=== PATIENT | female | born 1975 | race Caucasian/White ===

== ENCOUNTER 2020-07-01 18:48 | Inpatient (IN) | payer SELFPAY ==
[~2020-07-01] VITALS: Ht 180.3 cm; Wt 102.3 kg
[~2020-07-01 18:48] MED LIST: BUTA-177 PO; BUTA1CAP59 PO; MECL-101 PO; NAPR-856 PO
[2020-07-01] MEDS ORDERED: PROPOFOL 100 ML IV PRN ×2 (19:00→21:30)
--- NOTE | 2020-07-01 19:04 | NUR ---
BIB [facility] FROM HOME AFTER HAVING N/V FOR THE PAST 2 DAYS, PT WAS SITTING ON THE COUCH WHEN SHE START TO SNORE AND FAMILY PULLED HER TO THE FLOOR AND STARTED CPR AT 1745. PATIENT WAS IN IN V-FIB AND SHOCKED HER TWO TIMES WITH 200J WAS IN PEA, GAVE 2 ROUNDS OF EPI. GOT PULSE BACK FROM HR 120-140. BS 130. INTUBATED IN THE FIELD WITH 6.5 TUBE AT 24 AT THE TEETH. INTUBATED PT SPO2 89%. IO IN LEFT TIBIA. PT WAS GIVEN 1 L NS. 16 F OG PUT IN. 16 F VIVAR CATH PUT IS , RIGHT AND LEFT WRIST SOFT RESTRAINTS PUT ON. XRAY IN RROM
[2020-07-01] MEDS ORDERED: PIPERACILLIN/TAZO/PMX 3.375GM 50 ML ONE (19:11)
[2020-07-01] MEDS ORDERED: PIPERACILLIN/TAZO/PMX 3.375GM 50 ML IVPB ONE (19:30)
[2020-07-01] MEDS ORDERED: MECL-101 PO (19:36)
[2020-07-01] MEDS ORDERED: NORT10CA PO (19:36)
[2020-07-01] MEDS ORDERED: ONDA4TAB7 PO (19:36)
[2020-07-01] MEDS ORDERED: ACET125T2 PO (19:36)
[2020-07-01] MEDS ORDERED: OXYB5TAB10 PO (19:36)
[2020-07-01] MEDS ORDERED: BUTA1CAP5 PO (19:36)
[2020-07-01] MEDS ORDERED: HYDR-3237 PO (19:36)
[2020-07-01] MEDS ORDERED: NAPR-856 PO (19:36)
[2020-07-01] MEDS ORDERED: NALT1TAB PO (19:36)
[2020-07-01] MEDS ORDERED: TAMS-11 PO (19:36)
[2020-07-01] MEDS ORDERED: IBUP-1222 PO (19:36)
[2020-07-01] MEDS ORDERED: PRAV40TA2 PO (19:36)
[2020-07-01] MEDS ORDERED: SUMA100T4 PO (19:36)
--- NOTE | 2020-07-01 19:48 | NUR ---
REPORT FROM BRIDGER RN. TO CT.
[2020-07-01 19:59] LABS: MD YES; MEAN CORPUSCULAR HEMOGLOBIN 28.2 pg (27.0-34.8); MEAN CORPUSCULAR HGB CONC 33.6 g/dL (32.4-35.8); MEAN PLATELET VOLUME 9.2 fL (7.4-10.4); PLATELET COUNT 171 x10^3/uL (130-400); RED BLOOD COUNT 4.99 x10^6/uL (3.82-5.3); RED CELL DISTRIBUTION WIDTH 13.2 % (9.6-15.2)
[2020-07-01 20:02] LABS: ALBUMIN 2.9 g/dL (3.4-5.0); ANION GAP 13 mmol/L (5-15); CALCIUM 7.6 mg/dL (8.5-10.1); CHLORIDE 110 mmol/L (98-107)
[2020-07-01 20:03] LABS: MICROSCOPIC INDICATED
--- NOTE | 2020-07-01 20:10 | NUR ---
BACK FROM CT NICARDIPINE PER OCT.
--- NOTE | 2020-07-01 20:13 | NUR ---
MD AWARE OF GAS, UOP 155 CLOUDY YELLOW URINE.
[2020-07-01 20:14] LABS: ALANINE AMINOTRANSFERASE 37 U/L (12-78); ALKALINE PHOSPHATASE 108 U/L (45-117); BILIRUBIN,TOTAL 0.7 mg/dL (0.2-1.0); CREATININE 1.72 mg/dL (0.55-1.02); TOTAL PROTEIN 6.4 g/dL (6.4-8.2)
[2020-07-01 20:19] LABS: TROPONIN I 0.169 ng/mL (0.000-0.045)
[2020-07-01] MEDS ORDERED: FAMOTIDINE 20 MG/2 ML ONE (20:30)
[2020-07-01] MEDS ORDERED: ARTIFICIAL TEARS OINT 3.5 GM EACHEYE PRN (20:30)
[2020-07-01] MEDS ORDERED: SODIUM PHOSPHATE 20 MMOL in SODIUM CHLORIDE 0.9% 250 ML IVPB ONE (20:30)
[2020-07-01] MEDS ORDERED: MAGNESIUM SULFATE/D5W 100 ML ONE (20:30)
[2020-07-01] MEDS ORDERED: MAGNESIUM SULFATE 1 GM in SODIUM CHLORIDE 0.9% 100 ML IVPB ONE (20:30)
[2020-07-01] MEDS ORDERED: POTASSIUM CHLORIDE 40 MEQ in SODIUM CHLORIDE 0.9% 500 ML IV ONE (20:30)
[2020-07-01] MEDS ORDERED: FAMOTIDINE 20 MG/2 ML IVPush ONE (20:30)
[2020-07-01] MEDS ORDERED: VECURONIUM 10 MG IVPush PRN (20:30)
--- NOTE | 2020-07-01 20:35 | NUR ---
EMILY IN ROOM FOR EVAL, SPEAKING W FAMILY. ST 140S. NO GAG, PUPILS FIXED, 1 MM, DOES NOT WITHDRAW, GCS 3.
[2020-07-01 20:40] LABS: BAND#(MANUAL) 4.17 x10^3/uL; BANDS%(MANUAL) 17 % (0-7); LYMPH#(MANUAL) 1.47 x10^3/uL (1-3.4); LYMPHS% (MANUAL) 6 % (22-44); MONOS#(MANUAL) 0.49 x10^3/uL (0.3-2.7); MONOS% (MANUAL) 2 % (2-9); SEG#(MANUAL) 18.38 x10^3/uL (1.8-6.8); SEGS% (MANUAL) 75 % (42-75)
[2020-07-01 20:42] LABS: <PLATELET ESTIMATE> ADEQUATE; <RBC MORPHOLOGY> NORMAL
[2020-07-01 20:43] LABS: <PLT MORPHOLOGY> NORMAL PLT MORPH
[2020-07-01] MEDS ORDERED: METOPROLOL 1 MG/ML, 5ML ONE (20:44)
--- NOTE | 2020-07-01 20:51 | NUR ---
SMITH IN ROOM TO DISCUS SPT CONDITION W FAM.
[2020-07-01] MEDS ORDERED: METOPROLOL 1 MG/ML, 5ML IVPush SCH (21:00)
--- NOTE | 2020-07-01 21:16 | NUR ---
AWAITING PTS MOTHER BEFORE MAKING DECISION OF DONOR VS WITHDRAWING CARE.
[2020-07-01] MEDS: HEPARIN 5,000 UNITS/ML, 1ML SQ SCH (21:30)
[2020-07-01] MEDS: FAMOTIDINE 20 MG/2 ML IV SCH (21:30)
[2020-07-01] MEDS ORDERED: FENTANYL PF 100 MCG/2ML IVPush PRN (21:30)
[2020-07-01] MEDS ORDERED: PHARMACY MAY ADJ FOR RENAL FX MC SCH (21:30)
[2020-07-01] MEDS ORDERED: NS + 40MEQ KCL 1,000 ML IV SCH ×2 (21:30→23:30)
[2020-07-01] MEDS ORDERED: LIDOCAINE-MPF 1%, 2ML ENDO PRN (21:30)
--- NOTE | 2020-07-01 21:30 | NUR ---
[employer]OR [employer] CALLED: VICKY [phone] PLAN: DNW WILL COME TO SEE PT IN APPOX 1 HR, STILL AWAITING MOTHER, FAM AT BEDSIDE,
--- NOTE | 2020-07-01 22:06 | NUR ---
DR COCHRAN [phone]
--- NOTE | 2020-07-01 22:07 | NUR ---
RENETTA RIOS UPDATED, SPOKE SAMMIE Salguero MD IN ROOM TO SPEAK Jose M AYALA.
[2020-07-01] MEDS ORDERED: HEPARIN 5,000 UNITS/ML, 1ML ONE (22:10)
[2020-07-01] MEDS ORDERED: NS + 40MEQ KCL 1,000 ML IV ONE (22:11)
--- NOTE | 2020-07-01 22:16 | NUR ---
RT AT [facility].
[2020-07-01] MEDS ORDERED: DILTIAZEM 5 MG/ML, 5ML ONE (22:22)
--- NOTE | 2020-07-01 22:27 | NUR ---
10 MG DILTIAZEM PER VERBAL ORDER FOR HER 16OS. BACK AT BEDSIDE. IMPROVED HR TO 130S.
--- NOTE | 2020-07-01 22:46 | NUR ---
report to denise agriculturist. as
[2020-07-01 22:56] VITALS: BP 138/93
[2020-07-01] MEDS ORDERED: DILTIAZEM 5 MG/ML, 5ML IVPush ONE ×2 (23:00→23:30)
--- NOTE | 2020-07-01 23:20 | NUR ---
PT TX ON MONITOR W RT AND TECH TO CCU. FAMILY IN WAITING AREA.
--- NOTE | 2020-07-01 23:21 | NUR ---
UOP 220 URINE.
[2020-07-02] MEDS: AMPICILLIN/SULBACTAM 3 GM in SODIUM CHLORIDE 0.9% 100 ML IV SCH ×2 (00:01→05:02)
[2020-07-02] MEDS ORDERED: ACETAMINOPHEN 650 MG/20.3 ML UDC ONE (00:46)
[2020-07-02] MEDS: ACETAMINOPHEN 325 MG TABLET PO PRN ×2 (00:52→05:02)
[2020-07-02] MEDS ORDERED: DILTIAZEM 125 MG in SODIUM CHLORIDE 0.9% 100 ML IV PRN (01:00)
[2020-07-02] MEDS ORDERED: ACETAMINOPHEN 650 MG SUPP PR PRN (01:00)
[2020-07-02] MEDS ORDERED: DESMOPRESSIN 4 MCG/ML IVPush ONE (01:00)
[2020-07-02] MEDS ORDERED: NOREPINEPHRINE 8 MG in SODIUM CHLORIDE 0.9% 242 ML IV PRN (02:30)
[2020-07-02] MEDS ORDERED: NOREPINEPHRINE 32 MG in SODIUM CHLORIDE 0.9% 218 ML IV PRN (03:00)
[2020-07-02 04:57] LABS: BASOPHILS % (AUTO) 0 % (0-1); EOSINOPHILS % (AUTO) 0 % (1-7); LYMPHOCYTES % (AUTO) 3 % (22-44); MEAN CORPUSCULAR HEMOGLOBIN 28.4 pg (27.0-34.8); MEAN CORPUSCULAR HGB CONC 33.9 g/dL (32.4-35.8); MEAN PLATELET VOLUME 9.4 fL (7.4-10.4); MONOCYTES % (AUTO) 4 % (2-9); NEUTROPHILS % (AUTO) 93 % (42-75); PLATELET COUNT 141 x10^3/uL (130-400); RED BLOOD COUNT 5.42 x10^6/uL (3.82-5.3); RED CELL DISTRIBUTION WIDTH 13.6 % (9.6-15.2)
[2020-07-02 04:59] LABS: MD NO
[2020-07-02] MEDS ORDERED: PHENYLEPHRINE 50 MG in SODIUM CHLORIDE 0.9% 245 ML IV PRN (05:00)
[2020-07-02] MEDS ORDERED: VASOPRESSIN 20 UNIT in SODIUM CHLORIDE 0.9% 99 ML IV PRN (05:00)
[2020-07-02 05:01] LABS: ANION GAP 8 mmol/L (5-15); CALCIUM 7.5 mg/dL (8.5-10.1); CHLORIDE 118 mmol/L (98-107)
[2020-07-02] MEDS: HEPARIN 5,000 UNITS/ML, 1ML SQ SCH (05:02)
[2020-07-02] MEDS ORDERED: CEFEPIME 2 GM in DEXTROSE 5% 100 ML IV SCH (06:00)
[2020-07-02] MEDS ORDERED: PIPERACILLIN/TAZO/PMX 2.25GM 50 ML IVPB SCH (06:30)
[2020-07-02] MEDS: FAMOTIDINE 20 MG/2 ML IV SCH (08:29)
[2020-07-02] MEDS ORDERED: MAGNESIUM SULFATE PMX 2GM/50ML 0 ML ONE (13:53)
[2020-07-02] MEDS ORDERED: PHENYLEPHRINE 10 MG/ML ONE (13:55)
[2020-07-02] MEDS ORDERED: PROPOFOL 10 MG/ML, 100ML IV ONE (14:00)
[2020-07-02] MEDS ORDERED: ETOMIDATE 20 MG/10 ML ONE (14:00)
[2020-07-02] MEDS ORDERED: morphine SULFATE 10 MG/ML, 1ML IVPush PRN (14:00)
[2020-07-02] MEDS ORDERED: MIDAZOLAM 1 MG/ML, 5ML ONE (14:00)
[2020-07-02] MEDS ORDERED: morphine SULFATE 10 MG/ML, 1ML ONE (14:03)
[2020-07-02] MEDS ORDERED: LORazepam 2 MG/ML, 1ML ONE (14:04)
[2020-07-02] MEDS ORDERED: LORazepam 2 MG/ML, 1ML IV ONE (14:30)
[2020-07-02] MEDS ORDERED: LORazepam 2 MG/ML, 1ML IVPush PRN (14:30)
[2020-07-02] MEDS ORDERED: MORPHINE SULFATE 4 MG/ML, 1ML IV ONE (14:30)
[2020-07-02] MEDS ORDERED: MORPHINE SULFATE 4 MG/ML, 1ML IVPush PRN (14:30)
[2020-07-02] MEDS ORDERED: FAMOTIDINE 20 MG/2 ML IV SCH (21:00)
== END 2020-07-02 14:27 | disposition expired | DRG 871 ==
LOC: ED 20:27 → EDIP 21:01 → CCU 23:02
PROVIDERS: ADMIT Internal Medicine; ATTEND Internal Medicine
PROC: 0T9B70Z Drainage of Bladder with Drainage Device, Via Natural or Artificial Opening (ICD-10-PCS; principal; 2020-07-01)
PROC: 5A12012 Performance of Cardiac Output, Single, Manual (ICD-10-PCS; 2020-07-01)
PROC: 5A1935Z Respiratory Ventilation, Less than 24 Consecutive Hours (ICD-10-PCS; 2020-07-01)
PROC: 0BH17EZ Insertion of Endotracheal Airway into Trachea, Via Natural or Artificial Opening (ICD-10-PCS; 2020-07-01)
PROC: 04HY33Z Insertion of Infusion Device into Lower Artery, Percutaneous Approach (ICD-10-PCS; 2020-07-02)
PROC: 02HV33Z Insertion of Infusion Device into Superior Vena Cava, Percutaneous Approach (ICD-10-PCS; 2020-07-02)
DX: A41.9 Sepsis, unspecified organism (principal); J96.01 Acute respiratory failure with hypoxia; N17.0 Acute kidney failure with tubular necrosis; G93.6 Cerebral edema; G93.1 Anoxic brain damage, not elsewhere classified; N39.0 Urinary tract infection, site not specified; Q87.3 Congenital malformation syndromes involving early overgrowth; I47.2 Ventricular tachycardia; Z20.828 Contact with and (suspected) exposure to other viral communicable diseases; E87.6 Hypokalemia; E66.9 Obesity, unspecified; I46.2 Cardiac arrest due to underlying cardiac condition; I49.01 Ventricular fibrillation; G43.909 Migraine, unspecified, not intractable, without status migrainosus; Z82.3 Family history of stroke; Z68.31 Body mass index [BMI] 31.0-31.9, adult; Z83.3 Family history of diabetes mellitus; Z87.440 Personal history of urinary (tract) infections
CPT/HCPCS: 36415; 36600; 70450; 71045; 80048; 80053; 81001; 82803; 83605; 83735; 83880; 84100; 84145; 84436; 84443; 84478; 84484; 85025; 87040; 87070; 87077; 87081; 87086; 87186; 87205; 87635; 93005; 94002; 94003; 96374; 99285; G0378; J0295; J1644; J2250; J2543; J2597; J2704; J3475; J3480; J2060; J2270; J7040; J7050